=== PATIENT | male | born 1995 | race Caucasian/White ===

== ENCOUNTER 2018-07-03 21:56 | Emergency (ER) | payer OTHER ==
[2018-07-03 22:11] VITALS: TEMP 98.2
[2018-07-04 01:04] LABS: Appearance,Urine Clear (Clear); Bilirubin,Urine Negative (Negative); Blood,Urine Negative (Negative); Color,Urine Yellow; Glucose,Urine (UA) Negative (Negative); Ketones,Urine Negative (Negative); Leukocyte Esterase,Urine Negative (Negative); Nitrite,Urine Negative (Negative); Protein,Urine Negative (Negative); Specific Gravity,Urine 1.016 (1.001-1.035); Urobilinogen,Urine <2.0 mg/dL (<2.0)
[2018-07-04 01:19] LABS: Amphetamine Screen,Urine Not Detected (NotDetected); Barbiturate Screen,Urine Not Detected (NotDetected); Benzodiazepines Screen,Urine Not Detected (NotDetected); Cocaine Screen,Urine Not Detected (NotDetected); Methadone Screen, Urine Not Detected (NotDetected); Opiate Screen,Urine Not Detected (NotDetected); Oxycodone Screen, Urine Not Detected (NotDetected); Phencyclidine Screen,Urine Not Detected (NotDetected); Tricyclic Antidepressant,Urine Not Detected (NotDetected); Urn Cannabinoid Scrn Not Detected (NotDetected)
[2018-07-04] MEDS ORDERED: diphenhydrAMINE 50 MG/ML 1 ML VIAL IVP STA (02:32)
[2018-07-04] MEDS ORDERED: HALOPERIDOL LACTATE 5 MG/ML 1 ML VIAL IM STA (02:32)
[2018-07-04] MEDS ORDERED: LORazepam 2 MG/ML INJ IV STA (02:32)
--- NOTE | 2018-07-04 02:59 | ED ---
Psych HPI - General Source: family, police Mode of arrival: ambulatory <Abena Duenas - Last Filed: 07/04/18 04:22> <Marija Lee - Last Filed: 07/05/18 03:19> - General Chief Complaint: Psychiatric Symptoms Stated Complaint: Mental health Time Seen by Provider: 07/03/18 22:11 - History of Present Illness Initial Comments: 23-year-old male past medical history of autism presenting today for chief complaint of suicidal ideation and plan. Patient states that he has had increasing suicidal thoughts and was in [place] and stated close to the road stating he had thoughts of stepping from a car. Police department was contacted , who stated patient had a knife on him and he stated that if he had not been killed by a car he would stab himself so that he would . She denies any ingestion of harmful substances, prescription medications, aspirin or acetaminophen. Patient denies ETOH use. Patient denies any homicidal ideations. Patient states he has been seen previously for suicidal ideations with hospitalization. Patient states that his recent suicidal ideations have a brought upon due to fights with his ex-girlfriend. Patient denies any feelings of compromise safety. Patient was brought to [facility] by the [facility] police for further evaluation and treatment. Patient continues to admit to suicidal ideations. Remainder was negative, patient denies any recent fever, chills, shortness of breath, chest pain, back pain, abdominal pain, nausea or vomiting, numbness or tingling, dysuria or hematuria, constipation or diarrhea, headaches or visual changes, or any other complaints. (Abena Duenas) - Related Data Home Medications Medication Instructions Recorded Confirmed ARIPiprazole [Abilify] 2 mg PO DAILY 07/04/18 07/04/18 traZODone HCL 25 - 50 mg PO HS PRN 07/04/18 07/04/18 Allergies Allergy/AdvReac Type Severity Reaction Status Date / Time No Known Allergies Allergy Verified 07/03/18 23:03 Review of Systems ROS Other: All systems not noted in ROS Statement are negative. <Abena Duenas - Last Filed: 07/04/18 04:22> ROS Other: All systems not noted in ROS Statement are negative. <Marija Lee - Last Filed: 07/05/18 03:19> ROS Statement: Those systems with pertinent positive or pertinent negative responses have been documented in the HPI. Past Medical History Past Medical History: Asthma History of Any Multi-Drug Resistant Organisms: None Reported Past Surgical History: No Surgical Hx Reported Past Psychological History: Depression Smoking Status: Current some day smoker Past Alcohol Use History: Occasional Past Drug Use History: None Reported <Abena Duenas - Last Filed: 07/04/18 04:22> General Exam Limitations: no limitations <Abena Duenas - Last Filed: 07/04/18 04:22> <Marija Lee - Last Filed: 07/05/18 03:19> - General Exam Comments Initial Comments: General: The patient is awake and alert, in no distress, and does not appear acutely ill. Eye: Pupils are equal, round and reactive to light, extra-ocular movements are intact. No nystagmus. There is normal conjunctiva bilaterally. No signs of icterus. Ears, nose, mouth and throat: There are moist mucous membranes and no oral lesions. Neck: The neck is supple, there is no tenderness or JVD. Cardiovascular: There is a regular rate and rhythm. No murmur, rub or gallop is appreciated. Respiratory: Lungs are clear to auscultation, respirations are non-labored, breath sounds are equal. No wheezes, stridor, rales, or rhonchi. Gastrointestinal: Soft, non-distended, non-tender abdomen without masses or organomegaly noted. There is no rebound or guarding present. Bowel sounds are unremarkable. Musculoskeletal: Normal inspection of extremities including the upper and lower extremities at the shoulders, elbows and wrists bilaterally. Normal ROM, no tenderness. Strength 5/5. Sensation intact. Radial pulses equal bilaterally 2+. Neurological: A&O x 3. CN II-XII intact, There are no obvious motor or sensory deficits. Coordination appears grossly intact. Speech is normal. Skin: Skin is warm and dry and no rashes or lesions are noted. Psychiatric: Cooperative, appropriate mood & affect, normal judgment. (Abena Duenas) Course <Abena Duenas - Last Filed: 07/04/18 04:22> <Marija Lee - Last Filed: 01/29/19 03:19> Vital Signs 07/03/18 07/04/18 07/04/18 22:07 06:24 13:29 Temperature 98.2 F Pulse Rate 95 85 Respiratory 18 17 18 Rate Blood Pressure 131/87 97/69 O2 Sat by Pulse 98 99 Oximetry 07/04/18 14:29 Temperature 98.2 F Pulse Rate 85 Respiratory 18 Rate Blood Pressure 97/69 O2 Sat by Pulse 99 Oximetry - Reevaluation(s) Reevaluation #1: Pt mental health hold, shift change. Care will be resumed by attending Dr. Lee. 07/04/18 04:22 (Abena Duenas) Medical Decision Making - Lab Data Result diagrams: 07/04/18 02:54 07/04/18 02:54 <Abena Duenas - Last Filed: 07/04/18 04:22> - Lab Data Result diagrams: 07/04/18 02:54 07/04/18 02:54 <Marija Lee - Last Filed: 07/05/18 03:19> - Medical Decision Making D3-year-old male states he saw ideations and plan. In by state police. Patient has history of previous suicidal ideations. Patient denies any previous attempts. Patient states depression is due to fighting with his ex- girlfriend. Patient medically clear for a piece evaluation. Physical examination unremarkable. (Abena Duenas) I personally saw and examined the patient. I reviewed and agree with the mid- level provider findings including all diagnostic interpretations and treatment plans as written unless otherwise stated. Discussed patient care with the emergency psychiatric nurse I agree with the plan for admission. Patient was medically cleared for admission to a psychiatric hospital I completed the medical certification for involuntary admission. (Marija Lee) - Lab Data Lab Results 07/04/18 07/04/18 07/04/18 Range/Units 00:33 02:54 02:54 WBC 11.8 H (3.8-10.6) k/uL RBC 5.65 (4.30-5.90) m/uL Hgb 16.2 (13.0-17.5) gm/dL Hct 49.6 (39.0-53.0) % MCV 87.9 (80.0-100.0) fL MCH 28.7 (25.0-35.0) pg MCHC 32.6 (31.0-37.0) g/dL RDW 13.0 (11.5-15.5) % Plt Count 350 (150-450) k/uL Neutrophils % 56 % Lymphocytes % 32 % Monocytes % 4 % Eosinophils % 5 % Basophils % 1 % Neutrophils # 6.6 (1.3-7.7) k/uL Lymphocytes # 3.8 (1.0-4.8) k/uL Monocytes # 0.5 (0-1.0) k/uL Eosinophils # 0.5 (0-0.7) k/uL Basophils # 0.1 (0-0.2) k/uL Sodium 140 (137-145) mmol/L Potassium 4.3 (3.5-5.1) mmol/L Chloride 103 (98-107) mmol/L Carbon Dioxide 26 (22-30) mmol/L Anion Gap 11 mmol/L BUN 15 (9-20) mg/dL Creatinine 1.16 (0.66-1.25) mg/dL Est GFR (CKD-EPI)AfAm >90 (>60 ml/min/1.73 sqM) Est GFR (CKD-EPI)NonAf 88 (>60 ml/min/1.73 sqM) Glucose 98 (74-99) mg/dL Calcium 10.2 (8.4-10.2) mg/dL Total Bilirubin 0.5 (0.2-1.3) mg/dL AST 49 (17-59) U/L ALT 95 H (21-72) U/L Alkaline Phosphatase 69 (38-126) U/L Total Protein 7.7 (6.3-8.2) g/dL Albumin 4.6 (3.5-5.0) g/dL Urine Color Yellow Urine Appearance Clear (Clear) Urine pH 6.0 (5.0-8.0) Ur Specific [place] 1.016 (1.001-1.035) Urine Protein Negative (Negative) Urine Glucose (UA) Negative (Negative) Urine Ketones Negative (Negative) Urine Blood Negative (Negative) Urine Nitrite Negative (Negative) Urine Bilirubin Negative (Negative) Urine Urobilinogen <2.0 (<2.0) mg/dL Ur Leukocyte Esterase Negative (Negative) Urine Opiates Screen Not Detected (NotDetected) Ur Oxycodone Screen Not Detected (NotDetected) Urine Methadone Screen Not Detected (NotDetected) Ur Propoxyphene Screen Not Detected (NotDetected) Ur Barbiturates Screen Not Detected (NotDetected) U Tricyclic Antidepress Not Detected (NotDetected) Ur Phencyclidine Scrn Not Detected (NotDetected) Ur Amphetamines Screen Not Detected (NotDetected) U Methamphetamines Scrn Not Detected (NotDetected) U Benzodiazepines Scrn Not Detected (NotDetected) Urine Cocaine Screen Not Detected (NotDetected) U Marijuana (THC) Screen Not Detected (NotDetected) Disposition <Abena Duenas L - Last Filed: 07/04/18 04:22> Is patient prescribed a controlled substance at d/c from ED?: No <Marija Lee P - Last Filed: 07/05/18 03:19> Clinical Impression: Chronic schizophrenia Disposition: TRANSFER TO PSYCH HOSP/UNIT Condition: Stable Referrals: Ricky Self MD [Primary Care Provider] - 1-2 days
[2018-07-04 03:18] LABS: Basophils # (A) 0.1 k/uL (0-0.2); Basophils % (A) 1 %; Eosinophils # (A) 0.5 k/uL (0-0.7); Eosinophils % (A) 5 %; HCT 49.6 % (39.0-53.0); HGB 16.2 gm/dL (13.0-17.5); Lymphocytes # (A) 3.8 k/uL (1.0-4.8); Lymphocytes % (A) 32 %; MCH 28.7 pg (25.0-35.0); MCHC 32.6 g/dL (31.0-37.0); MCV 87.9 fL (80.0-100.0); Mean Platelet Volume 6.3; Monocytes # (A) 0.5 k/uL (0-1.0); Monocytes % (A) 4 %; Neutrophils # (A) 6.6 k/uL (1.3-7.7); Neutrophils % (A) 56 %; Platelet Count 350 k/uL (150-450); RBC 5.65 m/uL (4.30-5.90); WBC 11.8 k/uL (3.8-10.6)
[2018-07-04 03:39] LABS: ALT 95 U/L (21-72); AST 49 U/L (17-59); Albumin 4.6 g/dL (3.5-5.0); Alkaline Phosphatase 69 U/L (38-126); Anion Gap 11 mmol/L; Blood Urea Nitrogen 15 mg/dL (9-20); Calcium 10.2 mg/dL (8.4-10.2); Carbon Dioxide 26 mmol/L (22-30); Chloride 103 mmol/L (98-107); Glucose 98 mg/dL (74-99); Potassium 4.3 mmol/L (3.5-5.1); Sodium 140 mmol/L (137-145); Total Bilirubin 0.5 mg/dL (0.2-1.3); Total Protein 7.7 g/dL (6.3-8.2)
[2018-07-04 13:31] VITALS: BP 97/69; PULSE 85; RESP 18
== END 2018-07-04 14:28 ==
LOC: EC 21:56
DX: F20.9 Schizophrenia, unspecified (principal); F32.9 Major depressive disorder, single episode, unspecified; F84.0 Autistic disorder; F17.200 Nicotine dependence, unspecified, uncomplicated; Z79.899 Other long term (current) drug therapy
CPT/HCPCS: 36415; 80053; 80306; 81003; 85025; 99285

== ENCOUNTER 2019-09-11 12:23 | Inpatient (IN) | payer MEDICAID, OTHER ==
--- NOTE | 2019-09-11 13:09 | ED ---
General Adult HPI - General Chief complaint: Psychiatric Symptoms Stated complaint: EPS eval Time Seen by Provider: 09/11/19 12:32 Source: patient, police, RN notes reviewed Mode of arrival: ambulatory Limitations: no limitations - History of Present Illness Initial comments: 24-year-old male with a history of asthma, anxiety, depression, bipolar disorder currently taking psychiatric medications presents to the emergency department for a chief complaint of suicidal thoughts. Patient states that about an hour and a half ago he was exiting his friend when he started to feel suicidal. Patient will not disclose what he was twisting his friend about. States the police were called and when they showed up he had a knife to his neck. He felt suicidal at that time. However patient is not feeling suicidal now. Patient usually sees a therapist every week however given the recent pandemic the office has been closed and they have not seen him for about one month.Patient has no other complaints at this time including shortness of breath, chest pain, abdominal pain, nausea or vomiting, headache, or visual changes. - Related Data Home Medications Medication Instructions Recorded Confirmed Unable To Assess [Unable to Assess] 09/11/19 09/11/19 Allergies Allergy/AdvReac Type Severity Reaction Status Date / Time aripiprazole [From Abilify] Allergy Rash/Hives Verified 09/11/19 13:29 Review of Systems ROS Statement: Those systems with pertinent positive or pertinent negative responses have been documented in the HPI. ROS Other: All systems not noted in ROS Statement are negative. Past Medical History Past Medical History: Asthma History of Any Multi-Drug Resistant Organisms: None Reported Past Surgical History: No Surgical Hx Reported Past Psychological History: Depression Smoking Status: Current some day smoker Past Alcohol Use History: Occasional Past Drug Use History: Marijuana General Exam Limitations: no limitations General appearance: alert, in no apparent distress Head exam: Present: atraumatic, normocephalic, normal inspection Eye exam: Present: normal appearance, PERRL, EOMI. Absent: scleral icterus, conjunctival injection, periorbital swelling ENT exam: Present: normal exam, mucous membranes moist Neck exam: Present: normal inspection. Absent: tenderness, meningismus, lymphadenopathy Respiratory exam: Present: normal lung sounds bilaterally. Absent: respiratory distress, wheezes, rales, rhonchi, stridor Cardiovascular Exam: Present: regular rate, normal rhythm, normal heart sounds. Absent: systolic murmur, diastolic murmur, rubs, gallop, clicks Neurological exam: Present: alert Psychiatric exam: Present: agitated (Patient is cooperative although minimally agitated.) Course Vital Signs 09/11/19 12:24 Temperature 98.6 F Pulse Rate 75 Respiratory 18 Rate Blood Pressure 138/100 O2 Sat by Pulse 97 Oximetry Medical Decision Making - Medical Decision Making Was evaluated by EPS, currently recommending inpatient psychiatric treatment. Patient signed himself in, patient is his own guardian and able to make decisions at this time. Disposition Clinical Impression: Suicidal thoughts Disposition: TRANSFER TO PSYCH HOSP/UNIT Is patient prescribed a controlled substance at d/c from ED?: No Referrals: Ricky Self MD [Primary Care Provider] - 1-2 days Time of Disposition: 15:13
[2019-09-11 15:18] LABS: Amphetamine Screen,Urine Not Detected (NotDetected); Barbiturate Screen,Urine Not Detected (NotDetected); Benzodiazepines Screen,Urine Not Detected (NotDetected); Cocaine Screen,Urine Not Detected (NotDetected); Methadone Screen, Urine Not Detected (NotDetected); Opiate Screen,Urine Not Detected (NotDetected); Oxycodone Screen, Urine Not Detected (NotDetected); Phencyclidine Screen,Urine Not Detected (NotDetected); Tricyclic Antidepressant,Urine Detected (NotDetected); Urn Cannabinoid Scrn Not Detected (NotDetected)
[2019-09-11] MEDS ORDERED: MAGNESIUM HYDROXIDE 2,400 MG/10 ML CUP PO PRN (16:48)
[2019-09-11] MEDS ORDERED: MAG HYDROX/AL HYDROX/SIMETH 30 ML CUP PO PRN (16:48)
[2019-09-11] MEDS ORDERED: ZIPRASIDONE 20 MG VIAL IM PRN (16:48)
[2019-09-11] MEDS ORDERED: ACETAMINOPHEN TAB 325 MG TAB PO PRN (16:48)
[2019-09-12 06:39] VITALS: RESP 16
[2019-09-12] MEDS: VORTIOXETINE HYDROBROMIDE 10 MG TABLET PO SCH (08:16)
[2019-09-12 08:30] LABS: Basophils # (A) 0.1 k/uL (0-0.2); Basophils % (A) 1 %; Eosinophils # (A) 0.5 k/uL (0-0.7); Eosinophils % (A) 6 %; HCT 53.1 % (39.0-53.0); HGB 17.5 gm/dL (13.0-17.5); Lymphocytes # (A) 2.9 k/uL (1.0-4.8); Lymphocytes % (A) 33 %; MCH 28.9 pg (25.0-35.0); MCHC 32.9 g/dL (31.0-37.0); MCV 87.7 fL (80.0-100.0); Mean Platelet Volume 7.6; Monocytes # (A) 0.5 k/uL (0-1.0); Monocytes % (A) 6 %; Neutrophils # (A) 4.7 k/uL (1.3-7.7); Neutrophils % (A) 52 %; Platelet Count 264 k/uL (150-450); RBC 6.06 m/uL (4.30-5.90); RDW 12.8 % (11.5-15.5)
[2019-09-12] MEDS: NICOTINE 21MG/24HR PATCH TRANSDERM SCH (08:31)
[2019-09-12 08:32] LABS: ALT 70 U/L (4-49); AST 40 U/L (17-59); African American GFR (CKD) >90 (>60 ml/min/1.73 sqM); Albumin 4.7 g/dL (3.5-5.0); Alkaline Phosphatase 72 U/L (38-126); Anion Gap 9 mmol/L; Blood Urea Nitrogen 16 mg/dL (9-20); Carbon Dioxide 25 mmol/L (22-30); Chloride 105 mmol/L (98-107); Cholesterol 225 mg/dL (<200); Glucose 88 mg/dL (74-99); HDL Cholesterol 42 mg/dL (40-60); LDL Cholesterol,Calculated 141 mg/dL (0-99); Non-African American GFR(CKD) 89 (>60 ml/min/1.73 sqM); Potassium 4.4 mmol/L (3.5-5.1); Sodium 139 mmol/L (137-145); Total Bilirubin 0.6 mg/dL (0.2-1.3); Triglycerides 211 mg/dL (<150)
[2019-09-12 10:42] VITALS: BMI 32.5
[2019-09-12] MEDS ORDERED: MELATONIN 5 MG TABLET PO PRN (11:13)
--- NOTE | 2019-09-12 11:22 | P.HP ---
Psychiatric H&P - . H&P Date: 09/12/19 History & Physical: Allergies Allergy/AdvReac Type Severity Reaction Status Date / Time aripiprazole From [facility] Allergy Rash/Hives Verified 09/11/19 18:06 Vital Signs Temp 98.3 F 09/12/19 06:30 Pulse 73 09/12/19 06:30 Resp 16 09/12/19 06:30 BP 129/83 09/12/19 06:30 Pulse Ox 99 09/12/19 06:30 Intake & Output 09/11/19 09/12/19 09/12/19 18:59 06:59 18:59 Weight 128.026 kg Laboratory Last Values WBC 9.0 k/uL (3.8-10.6) 09/12/19 07:48 RBC 6.06 m/uL (4.30-5.90) H 09/12/19 07:48 Hgb 17.5 gm/dL (13.0-17.5) 09/12/19 07:48 Hct 53.1 % (39.0-53.0) H 09/12/19 07:48 MCV 87.7 fL (80.0-100.0) 09/12/19 07:48 MCH 28.9 pg (25.0-35.0) 09/12/19 07:48 MCHC 32.9 g/dL (31.0-37.0) 09/12/19 07:48 RDW 12.8 % (11.5-15.5) 09/12/19 07:48 Plt Count 264 k/uL (150-450) 09/12/19 07:48 Neutrophils % 52 % 09/12/19 07:48 Lymphocytes % 33 % 09/12/19 07:48 Monocytes % 6 % 09/12/19 07:48 Eosinophils % 6 % 09/12/19 07:48 Basophils % 1 % 09/12/19 07:48 Neutrophils # 4.7 k/uL (1.3-7.7) 09/12/19 07:48 Lymphocytes # 2.9 k/uL (1.0-4.8) 09/12/19 07:48 Monocytes # 0.5 k/uL (0-1.0) 09/12/19 07:48 Eosinophils # 0.5 k/uL (0-0.7) 09/12/19 07:48 Basophils # 0.1 k/uL (0-0.2) 09/12/19 07:48 Sodium 139 mmol/L (137-145) 09/12/19 07:48 Potassium 4.4 mmol/L (3.5-5.1) 09/12/19 07:48 Chloride 105 mmol/L (98-107) 09/12/19 07:48 Carbon Dioxide 25 mmol/L (22-30) 09/12/19 07:48 Anion Gap 9 mmol/L 09/12/19 07:48 BUN 16 mg/dL (9-20) 09/12/19 07:48 Creatinine 1.14 mg/dL (0.66-1.25) 09/12/19 07:48 Est GFR (CKD-EPI)AfAm >90 (>60 ml/min/1.73 sqM) 09/12/19 07:48 Est GFR (CKD-EPI)NonAf 89 (>60 ml/min/1.73 sqM) 09/12/19 07:48 Glucose 88 mg/dL (74-99) 09/12/19 07:48 Calcium 10.0 mg/dL (8.4-10.2) 09/12/19 07:48 Total Bilirubin 0.6 mg/dL (0.2-1.3) 09/12/19 07:48 AST 40 U/L (17-59) 09/12/19 07:48 ALT 70 U/L (4-49) H 09/12/19 07:48 Alkaline Phosphatase 72 U/L (38-126) 09/12/19 07:48 Total Protein 8.0 g/dL (6.3-8.2) 09/12/19 07:48 Albumin 4.7 g/dL (3.5-5.0) 09/12/19 07:48 Triglycerides 211 mg/dL (<150) H 09/12/19 07:48 Cholesterol 225 mg/dL (<200) H 09/12/19 07:48 LDL Cholesterol, Calc 141 mg/dL (0-99) H 09/12/19 07:48 HDL Cholesterol 42 mg/dL (40-60) 09/12/19 07:48 TSH 1.810 mIU/L (0.465-4.680) 09/12/19 07:48 Urine Opiates Screen Not Detected (NotDetected) 09/11/19 15:04 Ur Oxycodone Screen Not Detected (NotDetected) 09/11/19 15:04 Urine Methadone Screen Not Detected (NotDetected) 09/11/19 15:04 Ur Propoxyphene Screen Not Detected (NotDetected) 09/11/19 15:04 Ur Barbiturates Screen Not Detected (NotDetected) 09/11/19 15:04 U Tricyclic Antidepress Detected (NotDetected) H 09/11/19 15:04 Ur Phencyclidine Scrn Not Detected (NotDetected) 09/11/19 15:04 Ur Amphetamines Screen Not Detected (NotDetected) 09/11/19 15:04 U Methamphetamines Scrn Not Detected (NotDetected) 09/11/19 15:04 U Benzodiazepines Scrn Not Detected (NotDetected) 09/11/19 15:04 Urine Cocaine Screen Not Detected (NotDetected) 09/11/19 15:04 U Marijuana (THC) Screen Not Detected (NotDetected) 09/11/19 15:04 09/12/19 10:22 IDENTIFYING DATA: Patient is a 24-year-old male with a history of depression who currently lives at an [facility] has no kids is not and 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 HPI: Patient presented to the hospital yesterday after police were called by the lap polisher at his AF as patient was suicidal and allegedly had a knife to his neck. Patient denied any suicidal ideations while in the hospital however did admit to a significant history of depression. Patient was seen in the hallways and was agreeable to supervisor speech in the office. Patient was directable and cooperative with the magnetic tape typewriter operator however stated that he was feeling depressed and feeling suicidal yesterday as his friend was "convincing me to kill myself because he said no one likes me". He states that he got one of his hunting knives and went down the street and that's when he put the knife to his neck and the police were called at that time. He states that he has been compliant with his medication however has not been to his outpatient follow-ups in a month. He states that he is also been dealing with another stressor in his life and believes that his girlfriend is talking to one of her ex-boyfriends. He states that 2 days ago he drank a fifth of whiskey and went to go sleep on the train tracks. He endorses anger issues and problems with impulse control. He admits anxiety at this time which is mild. He states that his mood is "swinging". He endorses poor sleep and fair appetite. Patient denies any suicidal or homicidal ideations intent or plan. At this time patient denies any auditory or visual hallucinations. Patient denies any flight of ideas racing thoughts and increased in goal directed behavior. Patient admits to using cigarettes daily, smoking approximately 6 packs per day and drinking occasional alcohol. He denies any recreational drug use. PAST PSYCHIATRIC HISTORY: Patient states that is a history of depression and anxiety and currently is taking Trintellix Benadryl and Abilify and recently started on Vraylar. Patient currently sees an outpatient psychiatrist however has not been in for follow-up in over a month due to the pandemic. He states that his last mental health admission was in [place] approximately 1 years ag o. He admits to multiple suicide attempts in the past. PMH: Asthma ALLERGIES: as per EMR CHEMICAL DEPENDENCY HISTORY: as per HPI FAMILY PSYCHIATRIC/SUBSTANCE USE HISTORY: denies SOCIAL HISTORY: Patient was born and raised in [place] [facility] and states that he completed up to 12th grade and does not have a GED. 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 He lives at an [facility] and does not have any kids and is not . MENTAL STATUS EXAM: General Appearance: Patient appears to be stated age is tall, alert, directable, and attempts to cooperate. Patient appears to have poor hygiene and grooming. Behavior: Patient is seated without any agitated behavior. Attempts to cooperate. Speech: Patient's speech is fluent and nonpressured. Soft tone. Mood/Affect: Patient reports their mood is "swinging", affect is congruent and constricted. Suicidality/Homicidality: Patient denies having any homicidal ideation intent or plan. Denies any suicidal ideations intent or plan Perceptions: Patient denies any visual hallucinations and denies any auditory hallucinations Though content/process: There is no evidence of any delusional thought content and thought process is linear and goal-directed. Memory and concentration: AOX3, grossly intact for the purposes of this session. Can spell "WORLD" backwards Judgment and insight: poor STRENGTHS/WEAKNESSES: strength is that patient is resilient. Weakness is that patient has poor judgment and is impulsive INTELLECT: average IMPRESSIONS: Major Depressive disorder, without psychotic features Alcohol abuse Nicotine dependence PLAN: -Patient is admitted under voluntary status to [facility] for stabilization of psychiatric symptoms and safety. Patient signed adult voluntary form and medication consent and is placed in patient's chart. -Medications : Will start patient on Trintellix 10 mg daily for mood, Abilify 5 mg daily for mood stabilization. Patient is agreeable to be placed on Abilify Maintenna long-acting injection prior to discharge. Restarted Benadryl 25 mg daily at bedtime for sleep. Melatonin 5 mg when necessary daily at bedtime for sleep. -Geodon PRN for agitation/aggression -Patient was counselled on substance abuse and desired to cut back on use -Patient was informed of the risks, benefits and side effects of the medication and patient verbally consented to taking the medications. Patient signed med consent form and was placed in chart. -Internal Medicine consult to perform medical evaluation and physical. -NRT - nicotine patch -SW on board for discharge planning. Encourage patient to participate in groups to work on coping skills. 09/12/19 11:16
[2019-09-12] MEDS: ARIPiprazole 5 MG TAB PO SCH (12:43)
--- NOTE | 2019-09-12 16:23 | P.CONS ---
History of Present Illness - Reason for Consult Consult date: 09/12/19 Medical management Requesting physician: Dorian Seals - Chief Complaint Suicidal ideation - History of Present Illness Consultation: This is a pleasant 44-year-old patient who lives with her antral foster half-way. 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 Patient had some issues with his girlfriend apparently seeing someone else. Patient felt very depressed suicidal. Decided to take a knife and to cut his throat. Was feeling very agitated. Did not hurt himself. Patient has been taking his medications at home but not has followed up with a psychiatrist or psychologist. He is also had some anger issues impulse control. He also recently had drank some alcohol incontinence later on the train tracks. Patient smokes sixpacks a day. Drinks alcohol occasionally. Denies use of any recreational drugs. Admitted to the psychiatry unit.. Review of systems: GEN.: None EYES: None HEENT: None NECK: None RESPIRATORY: None CARDIOVASCULAR: None GASTROINTESTINAL: None GENITOURINARY: None MUSCULOSKELETAL: None LYMPHATICS: None HEMATOLOGICAL: None PSYCHIATRY: Depressed anxious NEUROLOGICAL: None Past medical history to include: Depression, anxiety, asthma Social history: Smokes sixpacks a day. Drinks occasionally. Lives at a foster half-way. 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 Family history: Reviewed, noncontributory to presentationPhysical examination: VITAL SIGNS: 98.6, 75, 18, 138-100, 97% on room air GENERAL: BMI 32.6, sitting on edge of bed, awake not agitated. EYES: Pupils equal. Conjunctiva normal. HEENT: External appearance of nose and ears normal, oral cavity grossly normal. NECK: JVD not raised; masses not palpable. HEART: First and second heart sounds are normal; no edema. LUNGS: Respiratory rate normal; clear to auscultation. ABDOMEN: Soft, nontender, liver spleen not palpable, no masses palpable. PSYCH: Alert and oriented x3; mood and affect normal. NEUROLOGICAL: Cranial nerves grossly intact; no facial asymmetry, power and sensation grossly intact. LYMPHATICS: No lymph nodes palpable in the axilla and neck INVESTIGATIONS, reviewed in the clinical context: White count 19.7.5 platelets 260/4.4 creatinine 1.14 LDL 141 triglycerides 211 TSH 1.8 Urine drug screen positive for tricyclic antidepressants Assessment: -Suicidal ideation -Chronic nicotine dependence patient cigarette smoker -Obesity BMI 32.6 -Mild hyperlipidemia Plan: We will do a liver ultrasound given a slight blip in ALT. Patient be put on a low-cholesterol diet. Care was discussed with the patient. Advised against smoking. Patient should follow up with his family doctor for discharge Thank you Dr. Seals Past Medical History Past Medical History: Asthma History of Any Multi-Drug Resistant Organisms: None Reported Past Surgical History: No Surgical Hx Reported Smoking Status: Current some day smoker Medications and Allergies Home Medications Medication Instructions Recorded Confirmed Type Unable To Assess [Unable to Assess] 09/11/19 09/11/19 History Allergies Allergy/AdvReac Type Severity Reaction Status Date / Time aripiprazole [From Abilify] Allergy Rash/Hives Verified 09/11/19 18:06 Physical Exam Vitals: Vital Signs Temp Pulse Pulse Resp BP BP Pulse Ox 09/12/19 06:30 98.3 F 73 16 129/83 99 09/11/19 17:25 96.7 F L 97 18 141/77 97 09/11/19 16:59 98.2 F 66 18 157/99 94 L 09/11/19 12:24 98.6 F 75 18 138/100 97 Intake and Output 09/11/19 09/12/19 09/12/19 22:59 06:59 14:59 Other: Weight 128.026 kg Results CBC & Chem 7: 09/12/19 07:48 09/12/19 07:48 Labs: Abnormal Lab Results - Last 24 Hours (Table) 09/11/19 09/12/19 09/12/19 Range/Units 15:04 07:48 07:48 RBC 6.06 H (4.30-5.90) m/uL Hct 53.1 H (39.0-53.0) % ALT 70 H (4-49) U/L Triglycerides 211 H (<150) mg/dL Cholesterol 225 H (<200) mg/dL LDL Cholesterol, Calc 141 H (0-99) mg/dL U Tricyclic Antidepress Detected H (NotDetected)
[2019-09-12 20:11] LABS: Hemoglobin A1C 5.4 % (4.0-6.0)
[2019-09-12] MEDS: diphenhydrAMINE 25 MG CAP PO SCH (20:30)
[2019-09-13] MEDS: VORTIOXETINE HYDROBROMIDE 10 MG TABLET PO SCH (08:13)
[2019-09-13] MEDS: ARIPiprazole 5 MG TAB PO SCH (08:14)
[2019-09-13] MEDS: NICOTINE 21MG/24HR PATCH TRANSDERM SCH (08:14)
--- NOTE | 2019-09-13 08:32 | US ---
EXAMINATION TYPE: US abdomen limited DATE OF EXAM: 09/13/2019 COMPARISON: NONE CLINICAL HISTORY: Increased ALT mild. No pain. NPO EXAM MEASUREMENTS: Liver Length: 16.5 cm Gallbladder Wall: 0.2 cm CBD: 0.4 cm Right Kidney: 11.6 x 5.2 x 6.4 cm Pancreas: Tail obscured by overlying bowel gas Liver: Echogenic. Prominent area of possible focal sparing visualized in left lobe = 5.1 cm. Gallbladder: wnl Evidence for sonographic Henson's sign: neg CBD: wnl Right Kidney: No hydronephrosis or masses seen IMPRESSION: 1. Fatty liver with areas of focal fatty sparing. Otherwise unremarkable study.
--- NOTE | 2019-09-13 11:27 | P.PN ---
Progress Note - Text Progress Note Date: 09/13/19 Interval History: Patient was seen taking part in group this morning playing connect 4 with anot her patient and was directable and agreeable to speak with blog writer in the office. Patient denied any overnight complaints and states that he slept "soundly" throughout the night. He states that he has been feeling tired this morning and states that he feels a little bit lethargic after taking the Abilify. The patient was agreeable to take it at nighttime instead. He denies any akathisia or any increase in restlessness. He states that he has been attempting to go to more groups and participate as best as he can. He was focused on discharge. He states that his mood has been gradually improving at this time and he has been working as coping skills. At this time patient denies any suicidal or homical ideations, intent or plan. Patient denies any auditory, visual hallucinations and denies any paranoia or delusions. Patient denies any side effects from the medications and has been compliant with meds. Mental Status Exam: General Appearance: Patient appears to be stated age is tall, alert, directable, and attempts to cooperate. Patient appears to have improving hygiene and grooming. Behavior: Patient is seated without any agitated behavior. Attempts to cooperate. Speech: Patient's speech is fluent and nonpressured. Soft tone. Mood/Affect: Patient reports their mood is "a bit better", affect is congruent and constricted. Suicidality/Homicidality: Patient denies having any homicidal ideation intent or plan. Denies any suicidal ideations intent or plan Perceptions: Patient denies any visual hallucinations and denies any auditory hallucinations Though content/process: There is no evidence of any delusional thought content and thought process is linear and goal-directed. Focused on discharge. Memory and concentration: AOX3, grossly intact for the purposes of this session. Judgment and insight: poor, mildly improving. Assessment Major depressive disorder, without psychotic features Alcohol abuse Nicotine dependence Plan: -Patient continues to meet criteria for inpatient psychiatric admission for symptom stabilization and safety. Patient has signed adult voluntary form and medication consent and was placed in patient's chart. -Medications: Continue with Trintellix 10 mg daily for mood, increased Abilify 7.5 mg and switched to nightly dosing for mood stabilization and mood adjunct. We'll continue to consider Abilify Maintenna long-acting injection prior to discharge. Continue with Benadryl 25 mg nightly for sleep. Continue with melatonin 5 mg when necessary at bedtime for sleep. -When necessary Geodon for agitation/aggression. -NRT - nicotine patch -SW on board for discharge planning. Encouraged the patient to participate in milieu. Likely discharge back to [facility] in 1-2 days.
[2019-09-13] MEDS: diphenhydrAMINE 25 MG CAP PO SCH (20:46)
[2019-09-14] MEDS: NICOTINE 21MG/24HR PATCH TRANSDERM SCH (08:14)
[2019-09-14] MEDS: VORTIOXETINE HYDROBROMIDE 10 MG TABLET PO SCH (08:14)
[2019-09-14] MEDS ORDERED: VORTIOXETINE HYDROBROMIDE 10 MG TABLET PO ONE (11:01)
--- NOTE | 2019-09-14 11:07 | P.PN ---
Progress Note - Text Progress Note Date: 09/14/19 Interval History: Patient was seen taking part in group this morning and was speaking to other p atients in the [facility] and was directable and agreeable to speak with comic book writer in the office. Patient denied any overnight complaints however states that he did not sleep as well last night as he did not take his Abilify. Patient had his Abilify switched to at bedtime dosing and will be taking 7.5 mg tonight. He states that he slept around 4 hours intermittently. He states that his appetite and energy are good today. He did claim that he feels "kind of sad" when asked about his mood and states that mainly he misses his home his dog and his horses. He claims that he has been more active on the unit and speaking to other patients and claims then made more friends. He denies any akathisia or any increase in restlessness. He was focused on discharge for tomorrow. He states that his mood has been gradually improving at this time and he has been working as coping skills. At this time patient denies any suicidal or homical ideations, intent or plan. Patient denies any auditory, visual hallucinations and denies any paranoia or delusions. Patient denies any side effects from the medications and has been compliant with meds. Mental Status Exam: General Appearance: Patient appears to be stated age is tall, alert, directable, and attempts to cooperate. Patient appears to have improving hygiene and grooming. Behavior: Patient is seated without any agitated behavior. Attempts to coope rate. Speech: Patient's speech is fluent and nonpressured. Mood/Affect: Patient reports their mood is "kind of sad", affect is congruent and constricted. Suicidality/Homicidality: Patient denies having any homicidal ideation intent or plan. Denies any suicidal ideations intent or plan Perceptions: Patient denies any visual hallucinations and denies any auditory hallucinations Though content/process: There is no evidence of any delusional thought content and thought process is linear and goal-directed. more future oriented. Memory and concentration: AOX3, grossly intact for the purposes of this session. Judgment and insight: mildly improving. Assessment Major depressive disorder, without psychotic features Alcohol abuse Nicotine dependence Plan: -Patient continues to meet criteria for inpatient psychiatric admission for symptom stabilization and safety. Patient has signed adult voluntary form and medication consent and was placed in patient's chart. -Medications: Increased Trintellix 15 mg daily for mood, continue with Abilify 7.5 mg and switched to nightly dosing for mood stabilization and mood adjunct. Continue with Benadryl 25 mg nightly for sleep. Continue with melatonin 5 mg at bedtime for sleep. -When necessary Geodon for agitation/aggression. -NRT - nicotine patch -SW on board for discharge planning. Encouraged the patient to participate in milieu. Likely discharge back to [facility] tomorrow.
[2019-09-14] MEDS: NICOTINE POLACRILEX 2 MG GUM BUCCAL PRN ×2 (16:28→20:07)
--- NOTE | 2019-09-14 17:39 | P.PN ---
Progress Note - Text Progress Note Date: 09/14/19 I informed the patient about his ultrasound results. Diagnosis of -Nonalcoholic fatty liver disease. Patient told to reduce weight and decrease calorie intake and also decrease fat intake. He is to follow-up with GI as an outpatient.
[2019-09-14] MEDS: diphenhydrAMINE 25 MG CAP PO SCH (20:05)
[2019-09-14] MEDS ORDERED: ARIPiprazole 5 MG TAB PO SCH (21:00)
[2019-09-14] MEDS ORDERED: MELATONIN 5 MG TABLET PO SCH (21:00)
[2019-09-15 06:59] VITALS: BP 128/63; PULSE 69
[2019-09-15] MEDS: NICOTINE 21MG/24HR PATCH TRANSDERM SCH (08:37)
[2019-09-15] MEDS: NICOTINE POLACRILEX 2 MG GUM BUCCAL PRN (08:38)
[2019-09-15] MEDS ORDERED: VORTIOXETINE HYDROBROMIDE 20 MG TABLET PO SCH (09:00)
--- NOTE | 2019-09-15 10:19 | P.DS ---
Providers Date of admission: 09/11/19 16:45 Expected date of discharge: 09/15/19 Attending physician: Dorian Seals MD Consults: 09/11/19 17:09 Consult Physician Routine Consulting Provider: Chadwick Berumen Consult Reason/Comments: H&P Do you want consulting provider notified?: Yes Primary care physician: Ricky Self - Discharge Diagnosis(es) (1) Major depressive disorder without psychotic features Current Visit: Yes Status: Acute Priority: High (2) Alcohol abuse Current Visit: Yes Status: Acute Priority: Medium (3) Nicotine dependence Current Visit: Yes Status: Acute Priority: Low Hospital Course: Admission HPI: Patient is a 24-year-old male with a history of depression who currently lives at an 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 Patient presented to the hospital yesterday after police were called by the motor and chassis inspector at his [facility] as patient was suicidal and allegedly had a knife to his neck. Patient denied any suicidal ideations while in the hospital however did admit to a significant history of depression. Patient was seen in the hallways and was agreeable to speech therapy teacher in the office. Patient was directable and cooperative with the fha underwriter however stated that he was feeling depressed and feeling suicidal yesterday as his friend was "convincing me to kill myself because he said no one likes me". He states that he got one of his hunting knives and went down the street and that's when he put the knife to his neck and the police were called at that time. He states that he has been compliant with his medication however has not been to his outpatient follow-ups in a month. He states that he is also been dealing with another stressor in his life and believes that his girlfriend is talking to one of her ex-boyfriends. He states that 2 days ago he drank a fifth of whiskey and went to go sleep on the train tracks. He endorses anger issues and problems with impulse control. He admits anxiety at this time which is mild. He states that his mood is "swinging". He endorses poor sleep and fair appetite. Patient denies any suicidal or homicidal ideations intent or plan. At this time patient denies any auditory or visual hallucinations. Patient denies any flight of ideas racing thoughts and increased in goal directed behavior. Patient admits to using cigarettes daily, smoking approximately 6 packs per day and drinking occasional alcohol. He denies any recreational drug use. Hospital course: Upon admission to the unit patient was initially depressed and isolative. Patient was however directable and agreeable to commence treatment. Patient got along well with other patients on the unit and followed unit protocol. Patient was compliant with the medications and denied any side effects throughout hospital course. Patient was started on Trintellix and titrated up to a dose of 15 mg daily for mood, Abilify was restarted and titrated up to a dose of 7.5 mg and switched to nightly dosing for mood stabilization and mood adjunct. Patient was continued on his home dose of Benadryl 25 mg nightly for sleep. I did melatonin 5 mg daily at bedtime for sleep. Patient spoke of his stressors and engaged in therapy both group and individual. Patient was also seen by medical team for history and physical exam. Patient had an abdominal ultrasound completed on 09/13/2019 for increased ALT mildly and it was noted the patient had a fatty liver with areas of focal fatty staring. Patient was counseled with regards to diet and exercise by hospitalist. Throughout the course of the hospitalization patient gradually improved with regards to impulsivity, mood stability, anxiety, sleep and became future oriented with improved insight and judgment. On the day of discharge patient denied any suicidal or homicidal ideations intent or plan denied any auditory or visual hallucinations. Patient endorsed wanting to live for and his family, his dog and also his job. The patient denied any access to guns or weapons. Patient denied any paranoia and did not endorse any delusions. Patient does have a significant history of substance abuse and was counseled on abstaining from all substances including alcohol and marijuana. Patient declined wanting to go to rehab at this point and wanted to cut back on his alcohol use on his own. Patient was also counseled on the medications and need for regular compliance and was encouraged to follow-up with their outpatient appointment for mental health and also for primary care. Prior to discharge a family meeting will be arranged by psychosocial rehabilitation counselor to answer any questions and ensure safety upon discharge. Mental status exam: General Appearance: Patient appears to be tall, overweight, stated age is alert, pleasant, and cooperative. Patient is in no acute distress and has fair hygiene and grooming Behavior: Patient is calmly seated without any agitated behavior. Speech: Patient's speech is fluent and nonpressured. Mood/Affect: Patient reports their mood is "much better", affect is congruent and euthymic. Suicidality/Homicidality: Patient denies having any suicidal or homicidal ideation intent or plan. Perceptions: Patient denies any auditory or visual hallucinations. Though content/process: There is no evidence of any delusional thought content and thought process is linear and goal-directed. More future oriented. Memory and concentration: AOX3, grossly intact for the purposes of this session. Can spell "WORLD" backwards correctly. Judgment and insight: improved with guarded prognosis Impression: Major depressive disorder, without psychotic features Alcohol abuse Nicotine dependence Plan: -Continue with discharge today as patient has improved and stabilized psychiatrically and is not currently an imminent threat to himself and/or others. -Continue medications: Increased Trintellix 20 mg daily for mood, continue with Abilify 7.5 mg for mood stabilization, Benadryl 25 mg nightly for sleep, melatonin 5 mg nightly for sleep. -Patient was counseled on the need for medication compliance and appropriate follow-up at mental health and also primary care for medical issues. Patient verbalized understanding and agreed. -Social work to arrange for and conduct family meeting to ensure safety upon discharge and answer any questions/concerns. Social work also to arrange for patients follow up appointments with [facility] for psychiatric care along with follow up with primary care provider. -Patient will be discharged back to his [facility]. -Patient counseled on abstaining from recreational drugs and marijuana and alcohol. Was informed/educated on the adverse effects on their physical and mental health. Patient verbally agreed and understood. Patient was offered substance abuse treatment however declined at this time. -Patient was instructed to return to the hospital or seek immediate medical care if their psychiatric or medical symptoms do worsen or reoccur. Allergies Allergy/AdvReac Type Severity Reaction Status Date / Time aripiprazole [From Abilify] Allergy Rash/Hives Verified 09/11/19 18:06 Laboratory Results WBC 9.0 k/uL (3.8-10.6) 09/12/19 07:48 RBC 6.06 m/uL (4.30-5.90) H 09/12/19 07:48 Hgb 17.5 gm/dL (13.0-17.5) 09/12/19 07:48 Hct 53.1 % (39.0-53.0) H 09/12/19 07:48 MCV 87.7 fL (80.0-100.0) 09/12/19 07:48 MCH 28.9 pg (25.0-35.0) 09/12/19 07:48 MCHC 32.9 g/dL (31.0-37.0) 09/12/19 07:48 RDW 12.8 % (11.5-15.5) 09/12/19 07:48 Plt Count 264 k/uL (150-450) 09/12/19 07:48 Neutrophils % 52 % 09/12/19 07:48 Lymphocytes % 33 % 09/12/19 07:48 Monocytes % 6 % 09/12/19 07:48 Eosinophils % 6 % 09/12/19 07:48 Basophils % 1 % 09/12/19 07:48 Neutrophils # 4.7 k/uL (1.3-7.7) 09/12/19 07:48 Lymphocytes # 2.9 k/uL (1.0-4.8) 09/12/19 07:48 Monocytes # 0.5 k/uL (0-1.0) 09/12/19 07:48 Eosinophils # 0.5 k/uL (0-0.7) 09/12/19 07:48 Basophils # 0.1 k/uL (0-0.2) 09/12/19 07:48 Sodium 139 mmol/L (137-145) 09/12/19 07:48 Potassium 4.4 mmol/L (3.5-5.1) 09/12/19 07:48 Chloride 105 mmol/L (98-107) 09/12/19 07:48 Carbon Dioxide 25 mmol/L (22-30) 09/12/19 07:48 Anion Gap 9 mmol/L 09/12/19 07:48 BUN 16 mg/dL (9-20) 09/12/19 07:48 Creatinine 1.14 mg/dL (0.66-1.25) 09/12/19 07:48 Est GFR (CKD-EPI)AfAm >90 (>60 ml/min/1.73 sqM) 09/12/19 07:48 Est GFR (CKD-EPI)NonAf 89 (>60 ml/min/1.73 sqM) 09/12/19 07:48 Glucose 88 mg/dL (74-99) 09/12/19 07:[address] Glu mg/dL 108 09/12/19 07:48 Hemoglobin A1c 5.4 % (4.0-6.0) 09/12/19 07:48 Calcium 10.0 mg/dL (8.4-10.2) 09/12/19 07:48 Total Bilirubin 0.6 mg/dL (0.2-1.3) 09/12/19 07:48 AST 40 U/L (17-59) 09/12/19 07:48 ALT 70 U/L (4-49) H 09/12/19 07:48 Alkaline Phosphatase 72 U/L (38-126) 09/12/19 07:48 Total Protein 8.0 g/dL (6.3-8.2) 09/12/19 07:48 Albumin 4.7 g/dL (3.5-5.0) 09/12/19 07:48 Triglycerides 211 mg/dL (<150) H 09/12/19 07:48 Cholesterol 225 mg/dL (<200) H 09/12/19 07:48 LDL Cholesterol, Calc 141 mg/dL (0-99) H 09/12/19 07:48 HDL Cholesterol 42 mg/dL (40-60) 09/12/19 07:48 TSH 1.810 mIU/L (0.465-4.680) 09/12/19 07:48 Urine Opiates Screen Not Detected (NotDetected) 09/11/19 15:04 Ur Oxycodone Screen Not Detected (NotDetected) 09/11/19 15:04 Urine Methadone Screen Not Detected (NotDetected) 09/11/19 15:04 Ur Propoxyphene Screen Not Detected (NotDetected) 09/11/19 15:04 Ur Barbiturates Screen Not Detected (NotDetected) 09/11/19 15:04 U Tricyclic Antidepress Detected (NotDetected) H 09/11/19 15:04 Ur Phencyclidine Scrn Not Detected (NotDetected) 09/11/19 15:04 Ur Amphetamines Screen Not Detected (NotDetected) 09/11/19 15:04 U Methamphetamines Scrn Not Detected (NotDetected) 09/11/19 15:04 U Benzodiazepines Scrn Not Detected (NotDetected) 09/11/19 15:04 Urine Cocaine Screen Not Detected (NotDetected) 09/11/19 15:04 U Marijuana (THC) Screen Not Detected (NotDetected) 09/11/19 15:04 Vital Signs Temp 98.2 F 09/15/19 06:35 Pulse 69 09/15/19 06:35 Resp 16 09/15/19 06:35 BP 128/63 09/15/19 06:35 Pulse Ox 98 09/15/19 06:35 Patient Condition at Discharge: Stable Plan - Discharge Summary Discharge Rx Participant: No New Discharge Prescriptions: New ARIPiprazole [Abilify] 7.5 mg PO HS 30 Days tab diphenhydrAMINE [Benadryl] 25 mg PO HS 30 Days cap Nicotine 21Mg/24Hr Patch [Habitrol] 1 patch TRANSDERM DAILY 14 Days patch Melatonin 5 mg PO HS 30 Days tablet Nicotine Polacrilex [Nicorette] 2 mg BUCCAL Q4HR PRN 28 Days gum PRN Reason: Nicotine Cravings Vortioxetine Hydrobromide [Trintellix] 20 mg PO DAILY 30 Days tablet Discharge Medication List ARIPiprazole [Abilify] 7.5 mg PO HS 30 Days tab 09/15/19 [Rx] Melatonin 5 mg PO HS 30 Days tablet 09/15/19 [Rx] Nicotine 21Mg/24Hr Patch [Habitrol] 1 patch TRANSDERM DAILY 14 Days patch 09/15/19 [Rx] Nicotine Polacrilex [Nicorette] 2 mg BUCCAL Q4HR PRN 28 Days gum 09/15/19 [Rx] Vortioxetine Hydrobromide [Trintellix] 20 mg PO DAILY 30 Days tablet 09/15/19 [Rx] diphenhydrAMINE [Benadryl] 25 mg PO HS 30 Days cap 09/15/19 [Rx] Follow up Appointment(s)/Referral(s): [facility] [Outside] - 09/22/19 9:00 am (9am with Alex, via phone. 130 w/Dr Lomax ) Ricky Self MD [Primary Care Provider] - 1-2 days Kody Powell MD [STAFF PHYSICIAN] - 4 Weeks (Non-alcoholic fatty liver disease) Patient Instructions/Handouts: Help Prevent Suicide (DC) Activity/Diet/Wound Care/Special Instructions: Telephone appointment with [facility] daycare worker, Fabiola Beavers on 09/18/19 at 8:15 am. Activity and diet as tolerated. Avoid the use of street drugs and alcohol. Take all medications as prescribed. When you are in need of refills on your medications please contact your medical provider and/or outpatient psychiatrist to have this done. Please go to scheduled outpatient appointment for aftercare treatment. If symptoms return or become worse, call the crisis line at and/or go to the nearest emergency room for evaluation. Discharge Disposition: HOME SELF-CARE
[2019-09-15 12:20] VITALS: TEMP 96.3
== END 2019-09-15 12:23 | disposition home or self-care (01) | DRG 881 ==
LOC: EC 12:23 → 3MHU 16:45
PROVIDERS: ADMIT Psychiatry & Neurology Psychiatry; ATTEND Psychiatry & Neurology Psychiatry
DX: F32.9 Major depressive disorder, single episode, unspecified (principal); R45.851 Suicidal ideations; E66.9 Obesity, unspecified; E78.5 Hyperlipidemia, unspecified; F10.10 Alcohol abuse, uncomplicated; F17.210 Nicotine dependence, cigarettes, uncomplicated; F41.9 Anxiety disorder, unspecified; J45.909 Unspecified asthma, uncomplicated; K76.0 Fatty (change of) liver, not elsewhere classified; Z68.32 Body mass index [BMI] 32.0-32.9, adult; Z79.899 Other long term (current) drug therapy; Z91.5 Personal history of self-harm; Z71.41 Alcohol abuse counseling and surveillance of alcoholic; Z88.8 Allergy status to other drugs, medicaments and biological substances
CPT/HCPCS: 76705; 80053; 80061; 80306; 82075; 83036; 84443; 85025; 99285